=== PATIENT | female | born 1960 | race Caucasian/White ===

== ENCOUNTER 2018-03-11 11:06 | Day surgery (SDC) | payer MEDICAID ==
[2018-03-04 16:12] VITALS: BMI 39.4
[~2018-03-11 11:06] MED LIST: DEXAMETHASONE SOD PHOSPHATE 10 MG/ML 1 ML VIAL IV ONE; HYDROmorphone 0.5 MG/0.5 ML SYRINGE IVP PRN; LACTATED RINGERS 1,000 ML IV SCH; ONDANSETRON 4 MG/2 ML VIAL IVP ONE; ceFAZolin IN SWFI 2 GM/20 ML SYRINGE IVP ONE; fentaNYL (PF) 50 MCG/ML 2 ML AMP IV PRN
[2018-03-11] MEDS ORDERED: LIDOCAINE 1% 20 ML VIAL (10MG/ML) FOR IV START INTRADERMA ONE (11:50)
[2018-03-11 11:53] LABS: Glucose,Whole Blood 212 mg/dL (75-99)
[2018-03-11] MEDS ORDERED: MIDAZOLAM 2 MG/2 ML VIAL IVP ONE (12:08)
[2018-03-11] MEDS ORDERED: INSULIN ASPART 100 UNIT/ML 1 ML 10 ML VIAL SQ ONE (12:20)
[2018-03-11] MEDS ORDERED: fentaNYL (PF) 50 MCG/ML 2 ML AMP ONE (12:37)
[2018-03-11] MEDS ORDERED: PHENYLEPHRINE-0.9% NACL SYG 1 MG/10 ML SYRINGE ONE (12:37)
[2018-03-11] MEDS ORDERED: LIDOCAINE 1% INJ 10MG/ML (20 ML MDV) ONE (12:37)
[2018-03-11] MEDS ORDERED: ROPIVACAINE 5 MG/ML 30 ML VIAL ONE (12:37)
[2018-03-11] MEDS ORDERED: PROPOFOL 10 MG/ML 20 ML VIAL IV ONE (12:37)
[2018-03-11] MEDS ORDERED: SUCCINYLCHOLINE CHLORIDE 100 MG/5 ML SYR IV ONE (12:37)
[2018-03-11] MEDS ORDERED: BUPIVACAIN-EPI 0.25%-1:200,000 30 ML VIAL INTRAARTIC ONE (13:10)
[2018-03-11 13:56] VITALS: RESP 16; TEMP 98.2
[2018-03-11 14:09] LABS: Glucose,Whole Blood 209 mg/dL (75-99)
[2018-03-11 15:08] VITALS: BP 134/73; PULSE 81
--- NOTE | 2018-03-11 23:59 | OP ---
OPERATIVE REPORT DATE OF PROCEDURE: 03/11/2018. SURGEON: Simone Grey MD. BEAMER OPERATOR: Clark DE LA VEGA. PREOP DIAGNOSES: 1. Right shoulder partial-thickness versus full-thickness tear of the anterior supraspinatus. 2. Right shoulder superior labral tear. 3. Right shoulder bicipital tenosynovitis. 4. Right shoulder arthrofibrosis. POSTOPERATIVE DIAGNOSES: 1. Right shoulder type 2 SLAP tear. 2. Right shoulder bicipital tenosynovitis with tearing of the intra-articular portion of long head biceps tendon. 3. Right shoulder subacromial impingement with a type 2 anterolateral acromial spur. 4. Right shoulder arthrofibrosis. PROCEDURE PERFORMED: 1. Right shoulder arthroscopic biceps tenotomy. 2. Right shoulder anterior superior and posterior labral debridement. 3. Right shoulder acromioplasty. 4. Right shoulder manipulation under anesthesia. ANESTHESIA: General tracheal. ESTIMATED BLOOD LOSS: Minimal. TOURNIQUET: None. DRAINS: None. COMPLICATIONS: None apparent. DISPOSITION: Postanesthesia care unit. PREOP EXAMINATION: Under anesthesia, right shoulder pre manipulation elevation was 130. Post manipulation was to 160. Pre manipulation external rotation at the side was 30, post manipulation external rotation at the side was to 50. Premanipulation external rotation at 90 degrees abduction was 70 degrees. Post manipulation, external rotation at 90 degrees and premanipulation with internal rotation at 90 degrees abduction was to 50 degrees and post manipulation internal rotation at 90 degrees abduction was 70 degrees. ARTHROSCOPIC FINDINGS: Of the right shoulder: 1. Type 2 superior labral tear tearing both anterior post biceps anchor. The biceps anchor was not intact. There is also partial tearing of the intra-articular portion of long head of the biceps tendon. 2. Anterior inferior labrum was normal glenoid labral attachment. 3. Posterior labrum tearing the posterior labrum from the 9 o'clock position up to the 12 o'clock position on the glenoid face. 4. Humeral head cartilage was normal. 5. Rotator cuff: Minimal articular surface fraying of the supraspinatus, anterior aspect of the supraspinatus. The remaining intra-articular portion of the supraspinatus, infraspinatus and subscapularis were all intact. The bursal surface was pristine with no evidence of tearing of the subscapularis, supraspinatus, or infraspinatus. 6. Glenoid face cartilage is normal. 7. Subacromial space: Significant fraying of the undersurface of the coracoacromial ligament with a type 2 anterolateral acromial spur. INDICATIONS: Joellen is a very pleasant 57-year-old female with right shoulder pain. She has noted weakness as well as significant pain in the shoulder. She has been through a very long course of nonoperative management up to this point. Physical examination and MRI revealed possible partial versus full-thickness tearing of the anterior aspect of the supraspinatus as well as labral tearing. At this point in time, the patient feels that she has failed nonoperative management and would like to proceed with nonoperative intervention. Long discussion was held with the patient with regard to treatment options. The risks of procedure were all discussed with her in detail. These risks included, but were not limited to risk of infection, nerve damage, bleeding, pain, and a small risk of deep vein thrombosis which could lead to fatal pulmonary embolism. Further risks include lack of healing rotator cuff and the possibility for biceps contour change with a biceps tenotomy. The patient understands the operation as well as the fact there is no guarantee of improvement of her symptoms. An appropriate informed consent was obtained. DESCRIPTION OF PROCEDURE: The patient identified in the preoperative holding area. Surgical site was marked by both the patient and myself. She was given 2 g of Ancef IV for prophylactic purposes. She was then transferred to the operative suite. She was placed supine on the operative table. Patient was then intubated endotracheally and received general anesthesia throughout the operative procedure. Examination under anesthesia was then performed and the findings were noted above. It was at this time too that I proceeded with a manipulation under anesthesia of her right shoulder. That was noted as above as well. The patient was then placed into the beach chair position well-padded in preparation for surgery. Great care was taken to ensure that her cervical spine was in neutral alignment well-padded and maintained that way throughout the operative procedure. Great care was also taken to ensure that her legs were appropriately padded as well. The patient's right upper extremity is then prepped and draped in usual sterile fashion. Standard surgical pause undertaken to ensure that appropriate preoperative antibiotics were given and that we were operating the correct site. All staff in the room were in agreement we proceeded. The acromion as well as the AC joint coracoid was marked with a surgical pen. The skin of the anticipated port sites were also marked with a surgical pen. The skin of the anticipated port sites were then injected with 0.25% Marcaine with epinephrine. I then proceeded to make a posterior portal. A 30 degree arthroscope was introduced into the glenohumeral joint. Through this portal the arthroscopic pump pressure was set at 40 mmHg and maintained at that level throughout the entire case. Next, utilizing an 18-gauge spinal needle, topical localized placement, the anterior superior portal was made. This was made just underneath the biceps tendon high in the rotator interval. A small 5.75 mm cannula was then placed and the outflow was done through this cannula. Diagnostic arthroscopy of the shoulder was then performed. The findings noted as above. Great care was taken to probe superior labral complex as well as the biceps anchor. The biceps anchor was not firmly attached. She had significant tearing of the superior labrum which was readily displaceable. Also this extended both anterior and posterior to biceps anchor. The intra-articular portion of long head of the biceps tendon did show partial tearing as well. At this point, I proceeded with a biceps tenotomy. The biceps was tenotomized at its attachment on the supraglenoid tubercle. This was done utilizing the ArthroCare wand. I then proceeded to debride the torn loose tissue of the superior labrum. This was debrided anteriorly superiorly and posteriorly back to stable tissue utilizing synovial shaver. I then inspect the rotator cuff from intra-articular. She had very minimal fraying of the anterior most aspect of the supraspinatus. This was just into the bicipital groove. This was inspected. There was no evidence of full-thickness tearing. The posterior aspect of the supraspinatus and infraspinatus and the subscapularis were all relatively pristine. At this point time no further work was deemed necessary from intra-articular. The arthroscope was removed from the glenohumeral joint and utilizing the same posterior skin incision was placed in the subacromial space. Next utilizing an 18-gauge spinal needle topical localized placement, a lateral portal was made under direct visualization. A subacromial bursectomy was then performed utilizing synovial shaver as well as the Arthro[employer] wand. She had significant fraying of the undersurface of the coracoacromial ligament. This was then taken down utilizing the ArthroCare wand. This exposed underlying type 2 anterolateral acromial spur. I then proceeded with an acromioplasty. Utilizing synovial shaver in a darya type fashion, acromioplasty was completed. When the acromioplasty was complete, the arthroscope was placed in the lateral portal and the shaver placed posteriorly to ensure that it was adequate and coplanar with posterior aspect of the acromion. I then proceeded to evaluate the rotator cuff tear with the arthroscope in the lateral portal. The shoulder was then taken through full range of motion. Abduction and external rotation. I was able to visualize the entire rotator cuff. It was pristine on the bursal surface. There was no evidence of tearing. This was probed as well and there was no evidence of high-grade partial tearing. At this point, I made a decision not to proceed with any type of repair for the very minimal articular surface fraying of the supraspinatus. At this point in time, no further work was deemed necessary. The shoulder was thoroughly irrigated and then drained outflow cannula. The arthroscope was removed from the shoulder. The arthroscopic portals were then closed with 3-0 nylon interrupted suture. Sterile compressive dressings were applied. The patient's right upper extremity was placed into a standard sling. All sponge and needle counts were deemed correct prior to closure. The patient tolerated the procedure without apparent complication. She was transferred recovery room in stable condition. FRANCISCOL / IJN: [id number] /
--- NOTE | 2018-03-12 10:03 | P.ONQ ---
Anesthesiology Proc Note - PNB - Peripheral Nerve Block Performed Right Interscalene Single Time Out Performed: Yes Procedure Start Time: 12:09 Procedure Stop Time: 12:10 Indication: Acute Post-Operative Pain Sedation Type: Sedate with meaningful contact maintained Preparation: Sterile Prep Position: Supine Needle Size: 50mm (2") Needle Gauge: 21 Technique: Ultrasound Injectate: 0.5% Ropivacaine (see comment for volume) (ropi .5% 30cc) Blood Aspirated: No Pain Paresthesia on Injection Noted: No Resistance on Injection: Normal Events: Uneventful and Well Tolerated
== END 2018-03-11 15:24 | disposition home or self-care (01) ==
LOC: OR 11:06
PROVIDERS: ATTEND Orthopaedic Surgery Sports Medicine
DX: S43.431A Superior glenoid labrum lesion of right shoulder, initial encounter (principal); X58.XXXA Exposure to other specified factors, initial encounter; M75.21 Bicipital tendinitis, right shoulder; M43.28 Fusion of spine, sacral and sacrococcygeal region; M75.41 Impingement syndrome of right shoulder; S46.111A Strain of muscle, fascia and tendon of long head of biceps, right arm, initial encounter; E11.9 Type 2 diabetes mellitus without complications; Z79.84 Long term (current) use of oral hypoglycemic drugs; Z87.891 Personal history of nicotine dependence; S43.401A Unspecified sprain of right shoulder joint, initial encounter
CPT/HCPCS: 64415; 29826; 29823; J2250; J1100; J2405; J2001; J3010; J2795; J2370; J0330; J2704